=== PATIENT | male | born 1985 | race Caucasian/White ===

== ENCOUNTER 2017-09-25 18:29 | Emergency (ER) | payer MEDICAID ==
[~2017-09-25] VITALS: Ht 167.6 cm; Wt 49.4 kg
[2017-09-25 18:33] VITALS: BP 142/84
[2017-09-25] MEDS ORDERED: IBUP-1984 PO (19:56)
== END 2017-09-25 20:22 | disposition home or self-care (01) ==
LOC: ER 18:30
DX: S62.394A Other fracture of fourth metacarpal bone, right hand, initial encounter for closed fracture (principal); W22.8XXA Striking against or struck by other objects, initial encounter; Y93.89 Activity, other specified; Y92.89 Other specified places as the place of occurrence of the external cause; Y99.8 Other external cause status
CPT/HCPCS: 29125; 73130; 99284; A6449